=== PATIENT | male | born 1960 | race Caucasian/White ===

== ENCOUNTER 2016-03-01 10:38 | Outpatient (CLI) | payer OTHER ==
[2015-03-26 13:16] VITALS: BP 115/73
[2016-03-01 11:00] LABS: BASOPHILS % 0.5 (0.0-1.5); EOSINOPHILS % 2.1 % (0.0-6.8); LYMPHOCYTES # 1.5 # k/uL (0.6-4.0); MEAN CORPUSCULAR HEMOGLOBIN 31.4 pg (28.0-34.0); MONOCYTES # 0.5 # k/uL (0.0-0.9); MONOCYTES % 9.4 % (0.0-11.0); NEUTROPHILS # 3.2 # k/uL (1.4-7.7)
[2016-03-01 12:22] LABS: eGFR (African) > 60; eGFR (Non-African) > 60
[2016-03-02 01:21] LABS: VALPROIC ACID LEVEL 61.2 ug/mL (50.0-100.0)
== END 2016-03-01 10:40 ==
LOC: LAB 10:38
PROVIDERS: ATTEND Family Medicine
DX: Z51.81 Encounter for therapeutic drug level monitoring (principal); Z79.899 Other long term (current) drug therapy
CPT/HCPCS: 36415; 80053; 80164; 80299; 85025

== ENCOUNTER 2016-03-20 00:25 | Observation (INO) | payer OTHER ==
[2016-03-20] MEDS ORDERED: 0.9 % SODIUM CHLORIDE 1,000 ML IV ONE ×2 (00:48→02:58)
[2016-03-20 01:52] LABS: BASOPHILS % 0.1 (0.0-1.5); EOSINOPHILS % 0.4 % (0.0-6.8); LYMPHOCYTES # 0.9 # k/uL (0.6-4.0); MEAN CORPUSCULAR HEMOGLOBIN 32.6 pg (28.0-34.0); MONOCYTES # 0.7 # k/uL (0.0-0.9); MONOCYTES % 7.3 % (0.0-11.0)
[2016-03-20 02:02] LABS: eGFR (African) > 60; eGFR (Non-African) 56
--- NOTE | 2016-03-20 02:26 | ED Physician Documentation ---
General Adult - HISTORIAN Historian: patient, parent - HPI Stated Complaint: slurred speech, unsteady gait Chief Complaint: General Adult Onset: hours Timing: still present Severity: moderate Further Comments: yes (Pt is a 55 yo male with MR who lives in a intermediate and has a seizure d/o. Pt has daily seizures which are usually brief. Today pt had seizure which lasted longer than usual and appeared very weak. Pt has not been eating and has been sleeping excessively and does not appear to have his usual energy. He has chronic difficulty walking, but he appears more unsteady. Pt had complained of sore neck.) - ROS CONST: other (pt cannot give good ROS, he appears weak, per family, and had complained of a sore neck.) - PAST HX Past History: other (MR/doreen. delay; seizure d/o; chronic difficulty walking.) Allergies/Adverse Reactions: Allergies Allergy/AdvReac Type Severity Reaction Status Date / Time phenobarbital Allergy Verified 03/20/16 02:34 Home Medications: Ambulatory Orders Medication Instructions Recorded Cholecalciferol (Vitamin D3) [D3 2,000 unit PO D 05/08/12 Dots] Acetaminophen [Tylenol] 650 mg PO Q4 PRN #60 tablet 03/31/13 Divalproex Sodium [Depakote ER] 250 mg PO BID 03/20/16 Lacosamide [Vimpat] 200 mg PO BID 03/20/16 Lorazepam [Ativan] 2 mg PO QDAY 03/20/16 Oxcarbazepine [Trileptal] 300 mg PO TID 03/20/16 - SOCIAL HX Smoking History: non-smoker - FAMILY HX Family History: No - VITAL SIGNS Vital Signs: Vital Signs Temp Pulse Resp BP Pulse Ox 69 18 75/45 92 03/20/16 00:30 03/20/16 00:30 03/20/16 00:30 03/20/16 00:30 - REVIEWED ASSESSMENTS Nursing Assessment Reviewed: Yes Vitals Reviewed: Yes Progress - Progress Progress: BP 85/45 NS 1 L IVF x 2 BP 105/56 Rapid Strep - pos Rocephin 500 mg IV Admit to Dr. Liu. ED Results Lab/Radiology - Lab Results Lab Results: Lab Results 03/20/16 03/20/16 03/20/16 01:40 01:40 00:01 WBC 9.66 K/ul K/ul (4.00-12.00) RBC 4.60 M/ul M/ul (3.90-5.20) Hgb 15.0 g/dL g/dL (12.0-18.0) Hct 44.6 % % (37.0-53.0) MCV 97.0 fl fl (80.0-100.0) MCH 32.6 pg pg (28.0-34.0) MCHC 33.6 g/dL g/dL (30.0-36.0) RDW 12.5 % % (11.3-14.3) Plt Count 230 K/mm3 K/mm3 (130-400) Neut % (Auto) 82.4 % H % (39.0-79.0) Lymph % (Auto) 9.4 % L % (16.0-50.0) [place] % (Auto) 7.3 % % (0.0-11.0) Eos % (Auto) 0.4 % % (0.0-6.8) Baso % (Auto) 0.1 (0.0-1.5) Neut # 8.0 # k/uL H # k/uL (1.4-7.7) Lymph # 0.9 # k/uL # k/uL (0.6-4.0) [place] # 0.7 # k/uL # k/uL (0.0-0.9) Eos # 0.0 # k/uL # k/uL (0.0-0.6) Baso # 0.0 # k/uL # k/uL (0.0-0.5) Reactive Lymphs % 0.5 % % (0.0-5.0) Reactive Lymphs # 0.0 # k/uL # k/uL (0.0-0.8) Sodium 139 mmol/L mmol/L (136-145) Potassium 4.9 mmol/L mmol/L (3.5-5.0) Chloride 95 mmol/L L mmol/L (98-110) Carbon Dioxide 30 mmol/L mmol/L (20-32) BUN 16 mg/dL mg/dL (10-26) Creatinine 1.4 mg/dL mg/dL (0.4-1.5) Estimated Creat Clear 69 Est GFR ( Amer) > 60 (60 - ) Est GFR (Non-Af Amer) 56 L (60 - ) Glucose 119 mg/dL H mg/dL (70-99) Calcium 9.6 mg/dL mg/dL (8.5-10.5) Total Bilirubin 0.4 mg/dL mg/dL (0.2-1.2) AST 28 U/L U/L (0-41) ALT 26 U/L U/L (0-45) Alkaline Phosphatase 49 U/L U/L (46-116) Total Protein 7.1 g/dL g/dL (6.0-8.5) Albumin 4.2 g/dL g/dL (3.0-5.5) Influenza A (Rapid) Negative (NEGATIVE) Influenza B (Rapid) Negative (NEGATIVE) - Orders Orders: ED Orders Category Date Time Status BLOOD CULTURE Stat Lab 03/20/16 Ordered CBC/PLATELET/DIFF Routine Lab 03/20/16 01:40 Completed CMP Routine Lab 03/20/16 01:40 Completed INFLUENZA A&B Routine Lab 03/20/16 00:01 Completed INFLUENZA A&B Stat Lab 03/20/16 00:01 Ordered Rapid Strep [GRP A STREP SCREEN] Stat Lab 03/20/16 Ordered UA [URINALYSIS] Routine Lab 03/20/16 Ordered 0.9 % Sodium Chloride [Normal Saline] 1,000 ml Med 03/20/16 00:48 Discontinued IV Q1H General Adult Physical Exam - PHYSICAL EXAM GENERAL APPEARANCE: mild distress EENT: ENT inspection normal NECK: normal inspection, supple, lymphadenopathy RESPIRATORY: no resp distress, chest non-tender, breath sounds normal CVS: reg rate & rhythm, heart sounds normal ABDOMEN: soft, no organomegaly, normal bowel sounds BACK: normal inspection SKIN: warm/dry, normal color EXTREMITIES: non-tender, no evidence of injury NEURO: other (baseline mental status) Discharge Clincal Impression: Strep pharyngitis, Seizure disorder Hypotension Qualifiers: Hypotension type: unspecified hypotension type Qualified Code(s): I95.9 - Hypotension, unspecified Home Medications: Ambulatory Orders Cholecalciferol (Vitamin D3) [D3 Dots] 2,000 unit PO D 05/08/12 Acetaminophen [Tylenol] 650 mg PO Q4 PRN #60 tablet 03/31/13 Divalproex Sodium [Depakote ER] 250 mg PO BID 03/20/16 Lacosamide [Vimpat] 200 mg PO BID 03/20/16 Lorazepam [Ativan] 2 mg PO QDAY 03/20/16 Oxcarbazepine [Trileptal] 300 mg PO TID 03/20/16 Condition: Stable Disposition: ADMITTED INPATIENT Decision to Admit: [id number] Decision Time: 03:00
[2016-03-20 02:39] LABS: APPEARANCE,URINE CLEAR (CLEAR); COLOR,URINE YELLOW (YELLOW); OCCULT BLOOD,URINE NEGATIVE (NEGATIVE); UROBILINOGEN URINE 0.2 Eu (0.2-1.0)
[2016-03-20] MEDS ORDERED: 0.9 % SODIUM CHLORIDE 50 ML IV ONE (03:06)
[2016-03-20] MEDS ORDERED: ACETAMINOPHEN 325 MG TABLET PO PRN (03:43)
[2016-03-20] MEDS: 0.9 % SODIUM CHLORIDE 1,000 ML IV SCH ×2 (03:43→18:50)
[2016-03-20] MEDS ORDERED: cefTRIAXone SODIUM 1 GM in 0.9 % SODIUM CHLORIDE 50 ML IV SCH ×2 (04:00→16:00)
[2016-03-20 04:53] VITALS: BMI 25.5
[2016-03-20] MEDS ORDERED: LACOSAMIDE 50 MG TABLET PO ONE (06:12)
[2016-03-20] MEDS ORDERED: CHOLECALCIFEROL 1,000 UNIT TABLET PO ONE (09:00)
[2016-03-20] MEDS ORDERED: VALPROIC ACID (AS SODIUM SALT) 250 MG/5 ML BOTTLE PO SCH ×4 (09:00→20:00)
[2016-03-20] MEDS ORDERED: LORazepam 1 MG TABLET PO SCH ×3 (09:00→14:00)
[2016-03-20] MEDS ORDERED: LACOSAMIDE 50 MG TABLET PO SCH ×2 (09:00→10:19)
[2016-03-20] MEDS ORDERED: CITALOPRAM HYDROBROMIDE 20 MG TABLET PO ONE ×2 (09:00→21:00)
[2016-03-20] MEDS ORDERED: MULTIVITAMIN 1 EACH TABLET PO SCH (10:00)
[2016-03-20] MEDS: OXCARBAZEPINE 300 MG TABLET PO SCH ×3 (10:36→18:50)
--- NOTE | 2016-03-20 15:04 | Inpatient Progress Note ---
Subjective - Required Recertification Statement I anticipate X number of days because-include discharge plan: 1 day - Review of Systems Events since last encounter: Patient is less lethergic then earlier today. Is still having a lot of apraxic gait disturbance. No focal weakness noted. Patient does not complain of any pain in the leg or hip area. Ability to get a history from patient is difficult. HEENT: Denies: Head Aches Pulmonary: Denies: Dyspnea, Cough Cardiovascular: Denies: Chest Pain, Palpitations Gastrointestinal: Denies: Nausea, Vomiting, Abdominal Pain, Diarrhea, Constipation Musculoskeletal: Denies: Back Pain Neurological: Denies: Weakness Objective - Exam Vitals and I&O: Vital Signs Temp 97.4 F L 03/20/16 04:20 Pulse 76 03/20/16 04:20 Resp 16 03/20/16 04:20 BP 102/64 03/20/16 04:20 Pulse Ox 93 03/20/16 04:20 Intake & Output 03/19/16 03/20/16 03/20/16 23:59 11:59 23:59 Intake Total 300 Balance 300 Weight 76.204 kg 76.204 kg Intake: IV 300 Left Hand 300 General: Alert, Oriented to Person, Cooperative. No: Oriented to Place, Oriented to Time Neck: Supple, No JVD Lungs: Clear to auscultation, Normal air movement, Speaks full Sentences. No: Respiratory Distress, Wheezes, Rales, Rhonchi Cardiovascular: Regular rate, Normal S1, Normal S2, No murmurs Abdomen: Normal bowel sounds, Soft, No tenderness, No hepatospenomegaly, No masses Extremities: No clubbing, No cyanosis, No edema Skin: Normal, [place], Warm, Dry Neurological: Normal speech (at baseline), Strength Equal Bilat, Normal tone, Cranial nerves 3-12 NL. No: Normal gait Psych/Mental Status: Mental status NL (at baseline.), Mood NL. No: Intact Judgment - Results Results: Laboratory Results WBC 9.66 K/ul (4.00-12.00) 03/20/16 01:40 RBC 4.60 M/ul (3.90-5.20) 03/20/16 01:40 Hgb 15.0 g/dL (12.0-18.0) 03/20/16 01:40 Hct 44.6 % (37.0-53.0) 03/20/16 01:40 MCV 97.0 fl (80.0-100.0) 03/20/16 01:40 MCH 32.6 pg (28.0-34.0) 03/20/16 01:40 MCHC 33.6 g/dL (30.0-36.0) 03/20/16 01:40 RDW 12.5 % (11.3-14.3) 03/20/16 01:40 Plt Count 230 K/mm3 (130-400) 03/20/16 01:40 Neut % (Auto) 82.4 % (39.0-79.0) H 03/20/16 01:40 Lymph % (Auto) 9.4 % (16.0-50.0) L 03/20/16 01:40 [place] % (Auto) 7.3 % (0.0-11.0) 03/20/16 01:40 Eos % (Auto) 0.4 % (0.0-6.8) 03/20/16 01:40 Baso % (Auto) 0.1 (0.0-1.5) 03/20/16 01:40 Neut # 8.0 # k/uL (1.4-7.7) H 03/20/16 01:40 Lymph # 0.9 # k/uL (0.6-4.0) 03/20/16 01:40 [place] # 0.7 # k/uL (0.0-0.9) 03/20/16 01:40 Eos # 0.0 # k/uL (0.0-0.6) 03/20/16 01:40 Baso # 0.0 # k/uL (0.0-0.5) 03/20/16 01:40 Reactive Lymphs % 0.5 % (0.0-5.0) 03/20/16 01:40 Reactive Lymphs # 0.0 # k/uL (0.0-0.8) 03/20/16 01:40 Sodium 139 mmol/L (136-145) 03/20/16 01:40 Potassium 4.9 mmol/L (3.5-5.0) 03/20/16 01:40 Chloride 95 mmol/L (98-110) L 03/20/16 01:40 Carbon Dioxide 30 mmol/L (20-32) 03/20/16 01:40 BUN 16 mg/dL (10-26) 03/20/16 01:40 Creatinine 1.4 mg/dL (0.4-1.5) 03/20/16 01:40 Estimated Creat Clear 69 03/20/16 01:40 Est GFR ( Amer) > 60 (60-) 03/20/16 01:40 Est GFR (Non-Af Amer) 56 (60-) L 03/20/16 01:40 Glucose 119 mg/dL (70-99) H 03/20/16 01:40 Calcium 9.6 mg/dL (8.5-10.5) 03/20/16 01:40 Total Bilirubin 0.4 mg/dL (0.2-1.2) 03/20/16 01:40 AST 28 U/L (0-41) 03/20/16 01:40 ALT 26 U/L (0-45) 03/20/16 01:40 Alkaline Phosphatase 49 U/L (46-116) 03/20/16 01:40 Total Protein 7.1 g/dL (6.0-8.5) 03/20/16 01:40 Albumin 4.2 g/dL (3.0-5.5) 03/20/16 01:40 Urine Color Yellow (YELLOW) 03/20/16 01:30 Urine Appearance Clear (CLEAR) 03/20/16 01:30 Urine pH 6.0 (5.0 - 8.0) 03/20/16 01:30 Ur Specific [place] 1.010 (1.010-1.030) 03/20/16 01:30 Urine Protein Negative mg/dL (NEGATIVE) 03/20/16 01:30 Urine Ketones Negative mg/dL (NEGATIVE) 03/20/16 01:30 Urine Occult Blood Negative (NEGATIVE) 03/20/16 01:30 Urine Nitrite Negative (NEGATIVE) 03/20/16 01:30 Urine Bilirubin Negative (NEGATIVE) 03/20/16 01:30 Urine Urobilinogen 0.2 Eu (0.2-1.0) 03/20/16 01:30 Ur Leukocyte Esterase Negative (NEGATIVE) 03/20/16 01:30 Urine Glucose Negative mg/dL (NEGATIVE) 03/20/16 01:30 Influenza A (Rapid) Negative (NEGATIVE) 03/20/16 00:01 Influenza B (Rapid) Negative (NEGATIVE) 03/20/16 00:01 Group A Strep Screen Positive (NEGATIVE) H 03/20/16 01:30 Assessment/Plan - Assessment/Plan (1) Apraxic gait Status: Acute Assessment: will get CT scan of the brain to check for intracranial abnormalities due to recent falls (2) Seizure disorder Status: Acute Assessment: Has had two seizures in the past 36 hours, none since admission. Will get valproic acid level (3) Strep pharyngitis Status: Acute Comment: under treatment. (4) Dehydration Status: Acute Assessment: will recheck lytes.
[2016-03-20] MEDS ORDERED: SALINE FLUSH 10 ML DISP.SYRIN IVF ONE (16:25)
--- NOTE | 2016-03-20 16:51 | Diagnostic Imaging Report ---
[facility] [address] [facility] [address] [address] Report Submission Date: Mar 20, 2016 3:34:03 PM AUDIO VISUAL COLLECTIONS COORDINATOR Patient Study Name: KANE WEISS Date: Mar 20, 2016 3:11:22 PM AUDIO VISUAL COLLECTIONS COORDINATOR Modality Type: CT\SR Gender: M Description: CT BRAIN W/O CONTRAST : 62 Institution: [facility] Physician: KENTRELL HUANG Computed tomography of the head without contrast HISTORY: Gait disturbance FINDINGS: Transverse brain sections are obtained without contrast revealing marked cerebellar and mild to moderate cerebral atrophy. Localized left parietal and marked bifrontal encephalomalacia is observed. There is no intracranial hemorrhage. The skull is intact. IMPRESSION: Marked bifrontal and [id number] left parietal encephalomalacia. Global brain atrophy, most severely involving the cerebellum. Electronically signed on Mar 20, 2016 3:34:03 PM AUDIO VISUAL COLLECTIONS COORDINATOR by: Robert CONKLIN
[2016-03-20 18:49] VITALS: BP 122/69
--- NOTE | 2016-05-08 07:51 | Discharge Summary ---
Discharge Summary - Discharge Sumary History of Present Illness: Patient is a 55-year-old white male who is living in a half-way related to his mental retardation. Patient does have a history of seizure disorder. On the day of admission patient did have a seizure that lasted longer than his usual seizures. Patient was subsequently brought to the ED for evaluation. In the emergency room patient was found to have a strep pharyngitis. Patient was noted to be hypotensive with a systolic in the 80s. It was felt that the patient was probably dehydrated. Patient was subsequently admitted to observation for further care and evaluation. Home Medications: Ambulatory Orders Medication Instructions Recorded Amoxicillin [Amoxil] 500 mg PO TID #30 capsule 03/20/16 Cholecalciferol [Vitamin D-3] 2,000 unit PO 0800 03/20/16 Citalopram Hydrobromide [Celexa] 20 mg PO HS 03/20/16 Divalproex Sodium [Depakote ER] 250 mg PO 14 03/20/16 Divalproex Sodium [Depakote ER] 250 mg PO 20 03/20/16 Divalproex Sodium [Depakote ER] 500 mg PO 0800 03/20/16 LORazepam [Ativan] 1 mg PO 0800 03/20/16 LORazepam [Ativan] 2 mg PO 14 03/20/16 LORazepam [Ativan] 2 mg PO 1400 tablet 03/20/16 Lacosamide [Vimpat] 200 mg PO BID 03/20/16 Multivitamin [Tab-A-Eloy] 1 each PO DAILY 03/20/16 Oxcarbazepine [Trileptal] 300 mg PO TID 03/20/16 Consultations this Visit: None Procedures this Visit: Other (Head CT) Allergies/Adverse Reactions: Allergies Allergy/AdvReac Type Severity Reaction Status Date / Time phenobarbital Allergy Verified 03/20/16 02:34 Discharge Summary: Patient remained stable during his hospital stay. Patient did not have any further seizures. Patient was started on IV fluids of normal saline and rehydrated. Patient's hypotension improved with rehydration. At the time of dismissal patient blood pressure was 122/60. Patient continued to have a somewhat apraxic gait. CT scan of the head was done and did not show any acute abnormalities. At the time of dismissal patient was stable and was felt that he could be followed up on an outpatient basis and patient was subsequently discharged in stable condition. - Final Diagnosis (1) Apraxic gait Problems: improved (2) Seizure disorder Problems: stable, continue home meds (3) Strep pharyngitis Problems: treat with antibiotics (4) Dehydration Problems: encourage fluids
== END 2016-03-20 19:30 | disposition home or self-care (01) ==
LOC: ED 00:25 → SOUTH 03:56
PROVIDERS: ADMIT Emergency Medicine; ATTEND Family Medicine
DX: R26.0 Ataxic gait (principal); G40.909 Epilepsy, unspecified, not intractable, without status epilepticus; J02.0 Streptococcal pharyngitis; E86.0 Dehydration
CPT/HCPCS: 70450; 80053; 80164; 81002; 85025; 87040; 87186; 87400; 87880; G0378; J0696; J7030; 96361; 96365; 96367; 99283; 99284; S1016

== ENCOUNTER 2016-03-23 14:16 | Outpatient (CLI) | payer OTHER ==
--- NOTE | 2016-03-23 15:48 | Diagnostic Imaging Report ---
REINA PFEIFFER [facility] [address] [facility].[address] [address] Report Submission Date: Mar 23, 2016 3:14:21 PM SENIOR ANALYST PROGRAMMER Patient Study Name: KANE WEISS Date: Mar 23, 2016 2:40:50 PM SENIOR ANALYST PROGRAMMER Modality Type: CR Gender: M Description: LOWER EXTREMITY : 62 Institution: [facility] Physician: REINA PFEIFFER 3 views of the right foot History: RT FOOT, PAIN/ SWELLING X4-5 DAYS Findings: Comparison: March 31, 2013 No evidence of acute fracture or dislocation right foot. Deformity of the distal fibula is seen related to prior fracture. Mild hallux valgus deformity seen There is mild soft tissue swelling and at the right ankle. Impression: No evidence of acute fracture or dislocation of the right foot. Mild soft tissue swelling at the right ankle Deformity distal fibula due to old fracture Mild hallux valgus deformity Electronically signed on Mar 23, 2016 3:14:21 PM SENIOR ANALYST PROGRAMMER by: Myesha CONKLIN
== END 2016-03-23 14:17 ==
LOC: RAD 14:16
PROVIDERS: ATTEND Family Medicine
DX: M79.671 Pain in right foot (principal)
CPT/HCPCS: 73630

== ENCOUNTER 2016-08-25 09:39 | Outpatient (CLI) | payer OTHER ==
[2016-08-26 00:11] LABS: VALPROIC ACID LEVEL 54.1 ug/mL (50.0-100.0)
== END 2016-08-25 09:40 ==
LOC: EDBD → LAB 09:39 → EDBD 09:39 → LAB 09:40
PROVIDERS: ATTEND Family Medicine
DX: G40.909 Epilepsy, unspecified, not intractable, without status epilepticus (principal)
CPT/HCPCS: 36415; 80164; 80299

== ENCOUNTER 2016-09-04 14:20 | Outpatient (CLI) | payer OTHER ==
[2016-09-04 15:10] LABS: BASOPHILS % 0.6 (0.0-1.5); EOSINOPHILS % 1.8 % (0.0-6.8); MEAN CORPUSCULAR HEMOGLOBIN 31.9 pg (28.0-34.0); MEAN CORPUSCULAR VOLUME 94.8 fl (80.0-100.0); MONOCYTES % 9.1 % (0.0-11.0); NEUTROPHILS # 3.4 # k/uL (1.4-7.7)
[2016-09-04 15:38] LABS: eGFR (African) > 60; eGFR (Non-African) > 60
== END 2016-09-04 14:25 ==
LOC: EDBD 14:20 → LAB 14:20
PROVIDERS: ATTEND Family Medicine
DX: Z12.5 Encounter for screening for malignant neoplasm of prostate (principal); E55.9 Vitamin D deficiency, unspecified; G40.909 Epilepsy, unspecified, not intractable, without status epilepticus; R73.9 Hyperglycemia, unspecified
CPT/HCPCS: 36415; 80053; 82306; 83036; 84153; 85025

== ENCOUNTER → 2017-03-09 | Outpatient (CLI) | payer OTHER ==
[2017-03-09 09:42] LABS: BASOPHILS % 0.4 (0.0-1.5); EOSINOPHILS % 1.2 % (0.0-6.8); MEAN CORPUSCULAR HEMOGLOBIN 32.3 pg (28.0-34.0); MEAN CORPUSCULAR VOLUME 97.6 fl (80.0-100.0); MONOCYTES % 8.6 % (0.0-11.0); NEUTROPHILS # 3.9 # k/uL (1.4-7.7)
[2017-03-09 17:21] LABS: VALPROIC ACID LEVEL 57.8 ug/mL (50.0-100.0)
== END ==
LOC: LAB 09:08
PROVIDERS: ATTEND Family Medicine
DX: G40.909 Epilepsy, unspecified, not intractable, without status epilepticus (principal); R73.9 Hyperglycemia, unspecified; E55.9 Vitamin D deficiency, unspecified
CPT/HCPCS: 36415; 80156; 80164; 82652; 83036; 85025

== ENCOUNTER 2017-07-08 15:17 | Emergency (ER) | payer OTHER ==
[2017-07-08 15:37] VITALS: BP 123/67
--- NOTE | 2017-07-08 15:49 | ED Physician Documentation ---
General Adult - HISTORIAN Historian: parent (Mom and Dad) - HPI Stated Complaint: LAC Chief Complaint: Laceration/Recheck/Suture Additional Information: Per mom and dad patient has a chronic history of seizures in which he is at an assisted living facility- patient also wears protective head gear d/t to frequent seizures. Mom states that patient spends every other weekend with them. This morning around 10 a.m. they heard noise coming from patients room and he was having a seizure and hit his head (he was sleeping so he did not have helmet on)- mom states that she cleaned it up and steri-stripped it. They decided to have it looked at just it case it needed stitches. Parents state his seizure was typical and not abnormal. Onset: hours (around 10 a.m.) Timing: better Severity: other (no acute distress- patient is pleasant) Modifying Factors: seizure Quality: seizure- normal characteristic for patient - ROS CONST: no problems EYES/ENT: none CVS/RESP: none GI/: none MS/SKIN/LYMPH: other (2 cm laceration to the right brow- superficial) NEURO/PSYCH: denies: headache, difficulty walking - PAST HX Past History: none Other History: seizure disorder Surgeries/Procedures: other (vagus nerve stimulator) Immunizations: tetanus, UTD Allergies/Adverse Reactions: Allergies Allergy/AdvReac Type Severity Reaction Status Date / Time phenobarbital Allergy Verified 07/08/17 15:37 Home Medications: Ambulatory Orders Medication Instructions Recorded Amoxicillin [Amoxil] 500 mg PO TID #30 capsule 03/20/16 Cholecalciferol [Vitamin D-3] 2,000 unit PO 0800 03/20/16 Citalopram Hydrobromide [Celexa] 20 mg PO HS 03/20/16 Divalproex Sodium [Depakote ER] 250 mg PO 14 03/20/16 Divalproex Sodium [Depakote ER] 250 mg PO 20 03/20/16 Divalproex Sodium [Depakote ER] 500 mg PO 0800 03/20/16 LORazepam [Ativan] 1 mg PO 0800 03/20/16 LORazepam [Ativan] 2 mg PO 14 03/20/16 LORazepam [Ativan] 2 mg PO 1400 tablet 03/20/16 Lacosamide [Vimpat] 200 mg PO BID 03/20/16 Multivitamin [Tab-A-Eloy] 1 each PO DAILY 03/20/16 Oxcarbazepine [Trileptal] 300 mg PO TID 03/20/16 - SOCIAL HX Smoking History: non-smoker Alcohol Use: none Drug Use: none - FAMILY HX Family History: No - VITAL SIGNS Vital Signs: Vital Signs Temp Pulse Resp BP Pulse Ox 97.8 F 87 20 123/67 100 07/08/17 15:32 07/08/17 15:32 07/08/17 15:32 07/08/17 15:32 07/08/17 15:32 - REVIEWED ASSESSMENTS Nursing Assessment Reviewed: Yes Vitals Reviewed: Yes Procedures Wound Location: face Wound Length: 2cm Wound's Depth, Shape: superficial Wound Explored: no foreign body removed Betadine Prep?: Yes (and chlorhexidine) Wound Repaired With: Dermabond ED Results Lab/Radiology - Orders Orders: ED Orders Category Date Time Status Skin Adhesive NOW Care 07/08/17 15:45 Ordered General Adult Physical Exam - PHYSICAL EXAM GENERAL APPEARANCE: no distress EENT: eye inspection normal, ENT inspection normal, [place] NECK: normal inspection RESPIRATORY: no resp distress, breath sounds normal CVS: reg rate & rhythm, heart sounds normal, equal pulses, no murmur ABDOMEN: soft, normal bowel sounds, no distension BACK: normal inspection SKIN: warm/dry, normal color, other (2 cm superficial laceration to the right brow) EXTREMITIES: non-tender, normal range of motion, no evidence of injury NEURO: oriented X3 (oriented per disability), CN's nml as tested, sensation nml Discharge Clincal Impression: Laceration Referrals: Jeffy Gomez MD [Primary Care Provider] - 2 Days Additional Instructions: Instructions on Laceration care and skin adhesive sent with parents Script to use bike helmet given to parents to keep from irritating lacerated area on the face Keep area clean and dry- Adhesive will eventually flake off as abrasion heals. Try to keep patient from rubbing affected area. Condition: Good Disposition: 01 HOME, SELF-CARE Decision to Admit: NO Decision Time: 15:57
== END 2017-07-08 15:51 | disposition home or self-care (01) ==
LOC: ED 15:17
DX: S01.81XA Laceration without foreign body of other part of head, initial encounter (principal); X58.XXXA Exposure to other specified factors, initial encounter; Y92.013 Bedroom of single-family (private) house as the place of occurrence of the external cause; Y93.9 Activity, unspecified; Y99.9 Unspecified external cause status
CPT/HCPCS: 12011

== ENCOUNTER 2017-10-24 09:33 | Outpatient (CLI) | payer OTHER | END 2017-10-24 09:35 | LOC: LAB 09:33 | PROVIDERS: ATTEND Family Medicine | DX: G40.909 Epilepsy, unspecified, not intractable, without status epilepticus (principal); Z51.81 Encounter for therapeutic drug level monitoring | CPT/HCPCS: 80053; 80164; 80299 ==

== ENCOUNTER 2018-09-16 13:53 | Emergency (ER) | payer OTHER ==
--- NOTE | 2018-09-16 14:07 | ED Physician Documentation ---
General Adult - HISTORIAN Historian: patient - HPI Stated Complaint: seizure and fall (head lac) Chief Complaint: Fall Onset: hours (1) Timing: still present Severity: mild Further Comments: yes (Per mom he was brushing his teeth so he did not have his helmet on yet so when he had his seizure (which is no new to him) he fell and did strike his head on the floor where he did get a cut on the left side of his head. Per his mom he is "acting just fine" she states "he doesnt need a bunch of xrays or tests" she just wants to know if the laceration needs stiches - she states she does not want him to have a CT and she does not want to refuse she is not sure what to do with the CT or care.) - ROS CONST: no problems - PAST HX Past History: other (seizures ) Immunizations: UTD Allergies/Adverse Reactions: Allergies Allergy/AdvReac Type Severity Reaction Status Date / Time phenobarbital Allergy Verified 09/16/18 14:19 Home Medications: Ambulatory Orders Medication Instructions Recorded Cholecalciferol [Vitamin D-3] 2,000 unit PO 0800 03/20/16 Citalopram Hydrobromide [Celexa] 20 mg PO HS 03/20/16 Divalproex Sodium [Depakote ER] 250 mg PO 14 03/20/16 Divalproex Sodium [Depakote ER] 250 mg PO 20 03/20/16 Divalproex Sodium [Depakote ER] 500 mg PO 0800 03/20/16 LORazepam [Ativan] 1 mg PO 0800 03/20/16 LORazepam [Ativan] 2 mg PO 14 03/20/16 Lacosamide [Vimpat] 200 mg PO BID 03/20/16 Multivitamin [Tab-A-Eloy] 1 each PO DAILY 03/20/16 Oxcarbazepine [Trileptal] 300 mg PO TID 03/20/16 - SOCIAL HX Smoking History: non-smoker Alcohol Use: none Drug Use: none - FAMILY HX Family History: No - VITAL SIGNS Vital Signs: Vital Signs Temp Pulse Resp BP Pulse Ox 98.2 F 82 19 121/77 94 09/16/18 13:54 09/16/18 13:54 09/16/18 13:54 09/16/18 13:54 09/16/18 13:54 - REVIEWED ASSESSMENTS Nursing Assessment Reviewed: Yes Vitals Reviewed: Yes Procedures Wound Location: head Wound Length: 4 cm Wound's Depth, Shape: linear Wound Explored: no foreign body removed Wound Repaired With: Dermabond Progress - Progress Progress: 1415: she states he cannot have a CT due to a stimulator to prevent seizures - this was discussed. She states she has no idea what to do she just wants sutures or nick if he needs them. DG 1425: she states she is wanting to give him his daily meds - explained I need to see CT results before oral intake is given DG 1430: She states to the [employer] for CT that she is refusing the CT and he is in the bathroom with her DG 1445: She then comes out with pt and states she wants him "all the way treated" - asked again if she want CT she states yes she wants the CT and she did not want to sign the refusal form DG 1450: Did escort the pt to the CT scanner and he tolerated well. DG 1500: discussed findings with mom - area was cleaned and dermabond placed. He tolerated well DG ED Results Lab/Radiology - Orders Orders: ED Orders Category Date Time Status Cleanse with NS and Chlorhexid 1T Care 09/16/18 14:[address] BRAIN W/O CONTRAST Stat Exams 09/16/18 Completed General Adult Physical Exam - PHYSICAL EXAM GENERAL APPEARANCE: no distress EENT: eye inspection normal, no signs of dehydration NECK: normal inspection RESPIRATORY: no resp distress, chest non-tender, breath sounds normal CVS: reg rate & rhythm, heart sounds normal ABDOMEN: soft, no distension BACK: normal inspection SKIN: warm/dry, other (left side of scalp 4 cm laceration linear superficial ) EXTREMITIES: non-tender, normal range of motion, no evidence of injury NEURO: cognition normal (per mom ) Discharge Clincal Impression: Laceration Referrals: Jeffy Gomez MD [Primary Care Provider] - 2 Days Comments: 1. DO NOT PICK at the area glued 2. Keep area clean and dry 3. Follow up with PCP In 2 days 4. Return to ER for any increasing concerns Condition: Stable Disposition: 01 HOME, SELF-CARE Decision to Admit: NO Date of Decison to Admit: 09/16/18 Decision Time: 15:08
--- NOTE | 2018-09-16 14:59 | Diagnostic Imaging Report ---
EVI DENNEY [facility] [address] [facility] [address] [place], [place]. [address] Report Submission Date: Sep 16, 2018 2:56:25 PM CDT Patient Study Name: MARITO WEISS Date: Sep 16, 2018 2:40:28 PM CDT Modality Type: CT\SR Gender: M Description: CT BRAIN W/O CONTRAST : 62 Institution: [facility] Physician: EVI DENNEY CT brain without IV contrast Clinical history: Trauma Radiation dose DLP 1232 Mastoid air cells and visible sinuses are clear. No visible skull fractures. Moderate cortical atrophy with demyelinating process in the frontal lobes bilaterally. Prominent ventricles. No midline shift. No intracranial bleed acute process. Impression: Atrophy more pronounced on the frontal lobes . Dilated ventricles cannot exclude normal pressure hydrocephalus . No prior films available and there is no visible bleeding or acute intracranial process. Electronically signed on Sep 16, 2018 2:56:25 PM CDT by: Fortunato CONKLIN
[2018-09-16 15:25] VITALS: BP 118/74
== END 2018-09-16 15:21 | disposition home or self-care (01) ==
LOC: ED 13:53
DX: S01.91XA Laceration without foreign body of unspecified part of head, initial encounter (principal); W19.XXXA Unspecified fall, initial encounter; Y99.8 Other external cause status
CPT/HCPCS: 12002; 70450; 99283

== ENCOUNTER 2018-12-11 08:02 | Outpatient (CLI) | payer OTHER ==
[2018-12-11 08:37] LABS: BASOPHILS % 0.6 % (0.0-1.5)
[2018-12-11 08:38] LABS: NEUTROPHILS # 3.6 # k/uL (1.4-7.7)
[2018-12-11 08:54] LABS: eGFR (Non-African) > 60
== END 2018-12-11 08:07 ==
LOC: LAB 08:02
PROVIDERS: ATTEND Family Medicine
DX: G40.909 Epilepsy, unspecified, not intractable, without status epilepticus (principal)
CPT/HCPCS: 36415; 80053; 80164; 80299; 85025